=== PATIENT | male | born 1980 | race Two or more races ===

== ENCOUNTER 2025-06-09 16:15 | Emergency (ER) | payer OTHER ==
[~2025-06-09] VITALS: Ht 182.9 cm; Wt 127.5 kg
--- NOTE | 2025-06-09 17:24 | ED.PDOC ---
History of Present Illness HPI Comments 45-year-old male with a history of dyslipidemia brought in by self, referred by outpatient clinic for evaluation of an abnormal EKG. Patient states he presented to the outpatient clinic for a routine checkup, also stating he has been short of breath for past 3-4 months, particularly at night when trying to lie flat, and with mild exertion, described as like I am suffocating. He denies any chest pain or edema. He does state that he breaks out in a sweat when he feels short of breath. 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 On arrival, the patient denies any chest pain, shortness a breath at rest, fever, cough or other current symptoms. Chief Complaint: Abnormal LAB's Time Seen by MD: 16:23 Allergies: Coded Allergies: NO KNOWN ALLERGIES (Unverified , 06/09/25) Home Meds Active Scripts Albuterol Sulfate (Albuterol Sulfate Hfa) 108 Mcg/Act Aer, 2 PUFF IN Q6HP PRN, #1 AER prn difficulty breathing Prov:ROSS MONTES MD 06/09/25 Doxycycline (Monohydrate) (Doxycycline) 100 Mg Cap, 100 MG PO DAILY for 10 Days, #11 CAP Two caps p.o. on day 1, 1 cap daily for the next 9 days Prov:ROSS MONTES MD 06/09/25 Past Medical History PAST MEDICAL HISTORY: High Lipids Surgical History (Other): Carpal tunnel, umbilical hernia Family History Family History: Family hx of heart dolly (Mother diagnosed with heart disease at age 40) Social History Smoker: Non-Smoker Alcohol: Denies ETOH Use Drugs: Denies Drug Use Lives In: Home All Other Systems: Reviewed and Negative (Comprehensive systems review obtained and negative except for what is stated in the HPI.) Physical Exam General Appearance: No Apparent Distress, Obese HEENT: Other (Pupils and face symmetric. Moist mucous membranes.) Neck: Full Range of Motion, Normal Inspection, Supple Respiratory: Lungs Clear, No Accessory Muscle Use, No Respiratory Distress, Normal Breath Sounds Cardiovascular: No Edema, No JVD, Tachycardia Breast Exam: Deferred Gastrointestinal: Non Tender, Soft Genitalia: Deferred Pelvic: Deferred Rectal: Deferred Extremities: Normal inspection, Normal range of motion, Non-tender, No pedal edema Neurologic: Alert (Oriented x4), Normal Affect, Normal Mood, Other (Ambulatory) Cerebellar Function: NOT DONE Reflexes: NOT DONE Skin: Dry, Normal Color, Warm Lymphatic: NOT DONE Was a procedure done? 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 Differential Dx Considerations may include: CHF, COPD, asthma, anxiety, URI, bronchitis, pneumonia, among others X-Ray, Labs, Meds, VS Vital Signs Date Time Temp Pulse Resp B/P (MAP) Pulse Ox O2 Delivery O2 Flow Rate FiO2 06/09/25 21:23 78 18 98 Room Air 06/09/25 21:23 98.0 78 18 116/74 (88) 98 98.0 06/09/25 17:05 104 06/09/25 16:48 98.4 111 20 124/83 (97) 95 98.4 Lab Test 06/09/25 20:19 06/09/25 18:24 06/09/25 17:24 Range/Units Troponin I High Sensitivity 37 35 36 </=54 ng/L White Blood Count 6.0 4.4-10.8 10^3/uL Red Blood Count 5.67 4.5-5.90 10^6/uL Hemoglobin 16.3 13.5-17.5 g/dL Hematocrit 47.3 41.0-53.0 % Mean Corpuscular Volume 83.3 80.0-100.0 fL Mean Corpuscular Hemoglobin 28.7 28.0-32.0 pg Mean Corpuscular Hemoglobin Concent 34.4 32.0-36.0 g/dL Red Cell Distribution Width 14.0 11.8-14.3 % Platelet Count 59 L 140-450 10^3/uL Mean Platelet Volume 8.4 6.9-10.8 fL Neutrophils (%) (Auto) 53.6 37.0-80.0 % Lymphocytes (%) (Auto) 28.8 10.0-50.0 % Monocytes (%) (Auto) 9.7 0.0-12.0 % Eosinophils (%) (Auto) 6.9 0.0-7.0 % Basophils (%) (Auto) 1.0 0.0-2.0 % Neutrophils # (Auto) 3.2 1.6-8.6 10 ^3/uL Lymphocytes # (Auto) 1.7 0.4-5.4 10 ^3/uL Monocytes # (Auto) 0.6 0-1.3 10 ^3/uL Eosinophils # (Auto) 0.4 0-0.8 10 ^3/uL Basophils # (Auto) 0.1 0-0.2 10 ^3/uL Nucleated Red Blood Cells 0.2 % Platelet Estimate Decreased Clumped Platelets Few Anisocytosis (manual) Slight Sodium Level 144 136-145 mmol/L Potassium Level 4.4 3.5-5.1 mmol/L Chloride Level 109 H 98-107 mmol/L Carbon Dioxide Level 25 20-31 mmol/L Anion Gap 10 5-15 Blood Urea Nitrogen 19 9-23 mg/dL Creatinine 1.08 0.700-1.30 mg/dL Glomerular Filtration Rate Calc 85 >90 mL/min BUN/Creatinine Ratio 17.6 10.0-20.0 Serum Glucose 142 H 74-106 mg/dL Calcium Level 10.2 8.7-10.4 mg/dL B-Type Natriuretic Peptide 1.94 0-100 pg/mL PROCEDURE(s): CXRP - CHEST PORTABLE REASON: sob molina orthopnea ORDER NUMBER(s): [id number], ACCESSION NUMBER(s): [id number] CHEST RADIOGRAPH Indication: sob molina orthopnea Technique: Single frontal view of the chest was obtained Comparison: None FINDINGS: Lines and Tubes: None Lungs: Subtle left lateral lower lung zone opacity. Pleura: No effusion. No pneumothorax. Cardiomediastinal contours: Unremarkable Bones: No acute osseous abnormality. IMPRESSION: Subtle left lateral lower lung zone opacity which may be from overlying structures with atelectasis/ pneumonia not excluded. Recommend clinical correlation. X-Ray, Labs, Meds, VS Comment 45-year-old male with a history of dyslipidemia brought in by self, referred by outpatient clinic for abnormal EKG findings and orthopnea and dyspnea on exertion Vitals remarkable for rate 111 Exam unremarkable except for tachycardia Rhythm strip independently interpreted by me: Sinus , rate 104, no ectopy. Chest x-ray IMPRESSION: Subtle left lateral lower lung zone opacity which may be from overlying structures with atelectasis/ pneumonia not excluded. Recommend clinical correlation. CBC, basic metabolic panel, BNP, serial troponins unremarkable. Treatment indicated in the ED. Patient was not short of breath at rest, and on re-evaluation he was not tachycardic and was saturating normally on room air. Hospitalization was considered, however patient had no respiratory distress at rest, 2 serial troponins were negative, BNP was normal, so I am not concerned for CHF. Patient will still require referral to a towing pilot, however can follow-up as an outpatient. I will prescribe oral antibiotics to cover possible pneumonia, along with an inhaler. Rx albuterol, doxycycline Images Reviewed?: Images reviewed and evaluated by me Time of 1ST Reevaluation: 17:23 Reevaluation 1ST: Unchanged Patient Education/Counseling: Diagnosis, Treatment, Need For Follow Up Family Education/Counseling: No Family Present SEPSIS Sepsis Screen SEPSIS EXCLUSION NOTE: Sepsis Exclusion Note: Patient presents with SIRS criteria, but the SIRS response is attributed to [discomfort/anxiety ], not a suspected infection. Sepsis bundle is not initiated at this time, due to this reason. Further management will focus on the treatment of the above condition (s). Physician Orders Chest Portable (06/09/25 17:12) Electrocardigram (06/09/25 17:12) Vital Signs Date Time Temp Pulse Resp B/P (MAP) Pulse Ox O2 Delivery O2 Flow Rate FiO2 06/09/25 21:23 78 18 98 Room Air 06/09/25 21:23 98.0 78 18 116/74 (88) 98 98.0 06/09/25 17:05 104 06/09/25 16:48 98.4 111 20 124/83 (97) 95 98.4 Laboratory Tests Test 06/09/25 17:24 White Blood Count 6.0 10^3/uL (4.4-10.8) Departure 1 Departure Time of Disposition: 19:59 Impression: Primary Impression: Pneumonia Qualified Codes: J18.9 - Pneumonia, unspecified organism Disposition: HOME / SELF CARE / HOMELESS Condition: Stable Referrals: MARLIN BELLA Sr., MD Additional Instructions: Your blood tests, including screening test for heart attack and heart failure, were unremarkable. Your chest x-ray showed a possible left lower lung pneumonia. Please see the report below. I have prescribed antibiotics and an inhaler to help with your breathing. Follow-up with your primary doctor or clinic in 1-2 days for re-evaluation and for referral to a towing pilot for further evaluation. Alternatively, follow-up directly with Dr. Bella (cardiology). Return to ER for persistent or worsening symptoms. [address] [address] Ph: [phone] DIAGNOSTIC IMAGING Diagnostic Imaging Report : [id number] Signed PATIENT: MARLIN DEGROOT ACCT: [id number] UNIT: [id number] : 1980 LOC: ER ROOM / BED: / AGE / SEX: 45 / M ADM STATUS: REG ER SERVICE 11 ORDERING PHYSICIAN: ROSS MONTES MD PROCEDURE(s): CXRP - CHEST PORTABLE REASON: sob molina orthopnea ORDER NUMBER(s): [id number], ACCESSION NUMBER(s): [id number] CHEST RADIOGRAPH Indication: sob molina orthopnea Technique: Single frontal view of the chest was obtained Comparison: None FINDINGS: Lines and Tubes: None Lungs: Subtle left lateral lower lung zone opacity. Pleura: No effusion. No pneumothorax. Cardiomediastinal contours: Unremarkable Bones: No acute osseous abnormality. IMPRESSION: Subtle left lateral lower lung zone opacity which may be from overlying structures with atelectasis/ pneumonia not excluded. Recommend clinical correlation. ATED BY: ROSA CHEEK DO DICTATED DATE/TIME: 06/09/25 098 e-Prescriptions Albuterol Sulfate (Albuterol Sulfate Hfa) 108 Mcg/Act Aer 2 PUFF IN Q6HP PRN, #1 AER prn difficulty breathing Prov: ROSS MONTES MD 06/09/25 Doxycycline (Monohydrate) (Doxycycline) 100 Mg Cap 100 MG PO DAILY for 10 Days, #11 CAP Two caps p.o. on day 1, 1 cap daily for the next 9 days Prov: ROSS MONTES MD 06/09/25 Discharged With: Self Critical Care Note Critical Care Time?: No Stability Stability form required: No Heart Score Heart Score: Heart Score Response (Comments) Value History Slightly Suspicious 0 EKG Normal 0 Age 45-64 1 Risk Factors 1 or 2 risk factors 1 Troponin Normal limit 0 Total 2 AU ROSS FOWLER MD Jun 09, 2025 17:24
--- NOTE | 2025-06-09 17:48 | DVH ---
CHEST RADIOGRAPH Indication: sob molina orthopnea Technique: Single frontal view of the chest was obtained Comparison: None FINDINGS: Lines and Tubes: None Lungs: Subtle left lateral lower lung zone opacity. Pleura: No effusion. No pneumothorax. Cardiomediastinal contours: Unremarkable Bones: No acute osseous abnormality. IMPRESSION: Subtle left lateral lower lung zone opacity which may be from overlying structures with atelectasis/ pneumonia not excluded. Recommend clinical correlation.
[2025-06-09 18:01] LABS: Hemoglobin 16.3 g/dL (13.5-17.5)
[2025-06-09 18:03] LABS: Hematocrit 47.3 % (41.0-53.0); Mean Corpuscular Hemoglobin 28.7 pg (28.0-32.0); Mean Corpuscular Volume 83.3 fL (80.0-100.0); Nucleated Red Blood Cells % 0.2 %
[2025-06-09 18:09] LABS: Potassium 4.4 mmol/L (3.5-5.1); Sodium 144 mmol/L (136-145)
[2025-06-09 18:10] LABS: Anion Gap 10 (5-15); Carbon Dioxide 25 mmol/L (20-31)
[2025-06-09 18:11] LABS: Calcium 10.2 mg/dL (8.7-10.4)
[2025-06-09 18:15] LABS: BUN/Creatinine Ratio 17.6 (10.0-20.0); Blood Urea Nitrogen 19 mg/dL (9-23); Chloride 109 mmol/L (98-107)
[2025-06-09 18:20] LABS: Glucose 142 mg/dL (74-106)
[2025-06-09 18:44] LABS: Anisocytosis Slight
[2025-06-09] MEDS ORDERED: DOXY1CAP58 PO (20:06)
[2025-06-09] MEDS ORDERED: ALBU108A5 IN (20:06)
[2025-06-09 21:23] VITALS: BP 116/74; PULSE 78; RESP 18; TEMP 98; O2SAT 98
--- NOTE | 2025-06-11 07:11 | ECG ---
[facility] Test Date: 2025-06-09 Test Time: 17:04:24 Pat Name: MARLIN DEGROOT Department: ED Room: Gender: M [employer] Salesperson: solitario : 1980 Requested By: ROSS FOWLER Order Number: [id number] Reading MD: Marlin Acosta Measurements Intervals Bradley Rate: 104 P: 65 VA: 161 QRS: 54 QRSD: 110 T: 35 QT: 346 QTc: 455 Interpretive Statements Sinus tachycardia Inferolateral infarct, old Baseline wander in lead(s) II,III,aVR,aVF,V1,V2,V5,V6 0 Electronically Signed On 06-14-2025 18:28:33 PDT by Marlin Acosta Please click the below link to view image of tracing.
== END 2025-06-09 21:26 | disposition home or self-care (01) ==
LOC: ER 16:15
DX: J18.9 Pneumonia, unspecified organism (principal); E78.5 Hyperlipidemia, unspecified; F41.9 Anxiety disorder, unspecified; Z98.890 Other specified postprocedural states; Z79.899 Other long term (current) drug therapy
CPT/HCPCS: 36415; 71045; 80048; 83880; 84484; 85025; 93005